=== PATIENT | female | born 1985 | race Caucasian/White ===

== ENCOUNTER 2016-03-27 10:02 | Emergency (ER) | payer OTHER, MEDICAID ==
[~2016-03-27] VITALS: Ht 149.9 cm; Wt 61.7 kg
[2016-03-27 10:42] VITALS: BP 106/67
== END 2016-03-27 12:15 | disposition home or self-care (01) ==
LOC: ER 10:14
DX: B35.0 Tinea barbae and tinea capitis (principal)